=== PATIENT | male | born 1955 | race Caucasian/White ===

== ENCOUNTER 2018-10-19 10:23 | Emergency (ER) | payer OTHER ==
[~2018-10-19] VITALS: Ht 185.4 cm; Wt 104.3 kg
[2018-10-19] MEDS ORDERED: Norco 5-325 Ta1 EACH PO (12:08)
[2018-10-19] MEDS ORDERED: METCAR500 PO (12:08)
== END 2018-10-19 12:22 | disposition home or self-care (01) ==
LOC: ER 10:23
DX: M25.562 Pain in left knee (principal); M54.41 Lumbago with sciatica, right side; G89.29 Other chronic pain; Z87.891 Personal history of nicotine dependence
CPT/HCPCS: 73564; 99283-25; A9270-GY

== ENCOUNTER → 2023-03-14 | Outpatient (CLI) | payer MEDICARE ==
[~2023-03-14] MED LIST: METCAR500 PO; Norco 5-325 Ta1 EACH PO
[2023-03-17 13:11] LABS: M-SPIKE, % Not Observed % (Not Observed); PROTEIN,TOTAL,URINE 6.9 mg/dL (Not Estab.)
== END | disposition home or self-care (01) ==
LOC: LAB SHORT 03-13 10:00 → LAB 10:00 → LAB FUT 03-09 09:10
PROVIDERS: Internal Medicine
DX: R79.89 Other specified abnormal findings of blood chemistry (principal)
CPT/HCPCS: 81050; 84156; 84166; 86335

== ENCOUNTER → 2023-06-08 | Outpatient (CLI) | payer MEDICARE ==
[2023-06-10 14:37] LABS: CREATININE, URINE - PER 24H 1352 mg/d (800-2100); CREATININE, URINE - PER VOLUME 52 mg/dL; HOURS COLLECTED 24 hr; TOTAL VOLUME 2600 mL; VANILLYLMANDELIC ACID -PER 24H 2.9 mg/d (0.0-7.0); VANILLYLMANDELIC ACID -PER VOL 1.1 mg/L; VANILLYLMANDELIC ACID -RAT CRT 2 mg/gCR (0-6)
[2023-06-11 05:13] LABS: CORTISOL,U FREE - RATIO TO CRT 54.23 ug/g CRT; CORTISOL,URINE FREE - PER 24H 73.3 ug/d (<=60.0); CREATININE,URINE - PER 24H 1352 mg/d (800-2100); CREATININE,URINE - PER VOLUME 52 mg/dL; HOURS COLLECTED 24 hr; TOTAL VOLUME 2600 mL
[2023-06-11 13:44] LABS: CREATININE,URINE - PER 24H 1352 mg/d (800-2100); CREATININE,URINE - PER VOLUME 52 mg/dL; DOPAMINE,URINE - PER 24H 187 ug/d (71-485); DOPAMINE,URINE - PER VOLUME 72 ug/L; DOPAMINE,URINE - RATIO TO CRT 138 ug/g CRT (0-250); EPINEPHRINE,URINE - PER 24H 3 ug/d (1-14); EPINEPHRINE,URINE - PER VOLUME 1 ug/L; EPINEPHRINE,URN - RATIO TO CRT 2 ug/g CRT (0-20); HOURS COLLECTED 24 hr; NOREPINEPHRINE,UR - PER VOLUME 18 ug/L; NOREPINEPHRINE,URINE - PER 24H 47 ug/d (14-120); NOREPINEPHRINE,URN/CRT RATIO 35 ug/g CRT (0-45); TOTAL VOLUME 2600 mL
== END | disposition home or self-care (01) ==
LOC: LAB SHORT 11:16 → LAB 11:16 → LAB FUT 04-12 13:10 → EDSTATUS 04-12 13:10
PROVIDERS: Internal Medicine
DX: E87.1 Hypo-osmolality and hyponatremia (principal); D35.02 Benign neoplasm of left adrenal gland
CPT/HCPCS: 81050; 82384; 82530; 84585